=== PATIENT | male | born 1990 | race Caucasian/White ===

== ENCOUNTER 2020-12-26 13:25 | Emergency (ER) | payer OTHER, MEDICAID ==
[2020-12-26] MEDS ORDERED: MVI, Adult with Vitamin K 10 ML, Folic Acid 1 MG, Thiamine 100 MG in Lactated Ringers 1... IV ONE ×4 (13:26)
[2020-12-26] MEDS ORDERED: Lidocaine 1% 30 ML SDV ONE ×2 (13:26→14:29)
[2020-12-26] MEDS ORDERED: fentaNYL 100 MCG/2 ML SDV IV ONE ×3 (13:26)
[2020-12-26] MEDS ORDERED: HYDROmorphone 1 MG/ML Syringe IV ONE (13:26)
[2020-12-26] MEDS ORDERED: Iopamidol 612 MG/ML 100 ML Bottle IVPUSH ONE (13:38)
[2020-12-26] MEDS ORDERED: fentaNYL 100 MCG/2 ML SDV IVPUSH ONE ×3 (13:39→15:16)
[2020-12-26] MEDS ORDERED: MVI, Adult with Vitamin K 10 ML, Thiamine 100 MG, Folic Acid 1 MG in Lactated Ringers 1... IV ONE ×4 (13:40)
[2020-12-26] MEDS ORDERED: Lidocaine 1% 30 ML SDV INJECT ONE (14:00)
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
[2020-12-26 14:18] LABS: ANION GAP 11.2 mEq/L (7-13); CHLORIDE,CL 107 mmol/L (98-107); SODIUM,NA 145 mmol/L (136-145)
[2020-12-26 14:26] LABS: PTT,PARTIAL THROMBOPLSTIN TIME 23.5 SEC (22.0-34.0)
[2020-12-26] MEDS ORDERED: fentaNYL 100 MCG/2 ML SDV ONE ×2 (14:29→14:46)
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
[2020-12-26] MEDS ORDERED: HYDROmorphone 1 MG/ML Syringe ONE (14:46)
--- NOTE | 2020-12-26 15:12 | CR ---
PROCEDURE INFORMATION: Exam: XR Chest Exam date and time: 12/26/2020 2:43 PM Age: 30 years old Clinical indication: Other: Confirm tube placement TECHNIQUE: Imaging protocol: XR of the chest. Views: 1 view. COMPARISON: CT Chest Abdomen Pelvis w Cont 12/26/2020 1:46 PM FINDINGS: Tubes, catheters and devices: Chest tube appears to lie in the left pleural space. Lungs: Minimally visualized. No consolidation. Pleural spaces: Unremarkable. No pleural effusion. No pneumothorax. Heart/Mediastinum: Not well visualized.. Bones/joints: Acute left rib fractures. Prominent subcutaneous emphysema. IMPRESSION: Positioning of of left chest tube appears satisfactory.
[2020-12-26] MEDS ORDERED: ceFAZolin 2 GM in Sodium Chloride 0.9% 50 ML IV ONE (15:15)
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
[2020-12-31] MEDS ORDERED: fentaNYL 100 MCG/2 ML SDV IVPUSH ONE ×3 (08:53→08:55)
[2020-12-31] MEDS ORDERED: HYDROmorphone 0.5 MG/0.5 ML Syringe IVPUSH ONE (08:54)
[2020-12-31] MEDS ORDERED: Lidocaine 1% 30 ML SDV INJECT ONE (08:54)
== END 2020-12-26 15:37 ==
LOC: DL.ED 13:25
DX: S22.42XA Multiple fractures of ribs, left side, initial encounter for closed fracture (principal); S22.031A Stable burst fracture of third thoracic vertebra, initial encounter for closed fracture; S27.0XXA Traumatic pneumothorax, initial encounter; T79.7XXA Traumatic subcutaneous emphysema, initial encounter; E66.9 Obesity, unspecified; Z88.1 Allergy status to other antibiotic agents; Z68.30 Body mass index [BMI] 30.0-30.9, adult; V49.40XA Driver injured in collision with unspecified motor vehicles in traffic accident, initial encounter
CPT/HCPCS: 32551; 36415; 70450; 71045; 71260; 72125; 72128; 74177; 80053; 80307; 83605; 83735; 85025; 85610; 85730; 86140; 86850; 86900; 86901; 96365; 96368; 96375; 99285-25; J0690; J1170; J3010; J3411; J3490; J7120; Q9967

== ENCOUNTER 2023-10-07 13:13 | Emergency (ER) | payer BC ==
[2023-10-07 15:05] LABS: BASOPHILS PERCENT AUTO 0.4 % (0.0-1.0); HEMOGLOBIN 13.6 g/dL (14.0-18.0); MEAN CORPUSCULAR HGB CONC 33.2 g/dL (33.0-35.0); MEAN CORPUSCULAR VOLUME 90.5 fL (80-100); MONOCYTES PERCENT AUTO 8.6 % (2-8); PLATELET COUNT,PLT 294 10^3/uL (150-450); RED BLOOD CELL COUNT 4.53 10^6/uL (4.6-6.2)
[2023-10-07] MEDS: Iopamidol 612 MG/ML 100 ML Bottle IVPUSH ONE (15:06)
[2023-10-07] MEDS: Sodium Chloride 0.9% 1,000 ML IV ONE (15:13)
[2023-10-07] MEDS: Sodium Chloride 0.9% 10 ML Syringe FLUSH PRN (15:14)
[2023-10-07 15:34] LABS: A/G RATIO 0.9; ALBUMIN 3.8 g/dL (3.4-5.0); ANION GAP 11.6 mEq/L (7-13); BILIRUBIN TOTAL 0.2 mg/dL (0.2-1.0); BUN/CREATININE RATIO 15.2 (No establ ref range); C-REACTIVE PROTEIN 0.63 ng/dL (<=0.50); CALCIUM 8.9 mg/dL (8.5-10.1); CREATININE 1.05 mg/dL (0.70-1.30); EST CRCL DRUG DOSING (CG) 100.06 mL/min; POTASSIUM,K 3.6 mmol/L (3.5-5.1); PROTEIN TOTAL,TP 7.8 g/dL (6.4-8.2)
[2023-10-07 16:18] LABS: APPEARANCE,URINE CLEAR (CLEAR); BILIRUBIN,URINE NEGATIVE (NEGATIVE); COLOR,URINE YELLOW (YELLOW); GLUCOSE,URINE NEGATIVE (NEGATIVE); KETONES,URINE NEGATIVE (NEGATIVE); LEUKOCYTE ESTERASE,URINE NEGATIVE (NEGATIVE); NITRITE,URINE NEGATIVE (NEGATIVE); OCCULT BLOOD,URINE NEGATIVE (NEGATIVE); PROTEIN,URINE NEGATIVE (NEGATIVE); UROBILINOGEN,URINE 0.2 mg/dL (0.2-1.0)
== END 2023-10-07 16:45 | disposition home or self-care (01) ==
LOC: DL.ED 13:13
DX: R10.31 Right lower quadrant pain (principal); R14.1 Gas pain; R14.2 Eructation; R14.3 Flatulence; Z88.1 Allergy status to other antibiotic agents; Z88.8 Allergy status to other drugs, medicaments and biological substances
CPT/HCPCS: 36415; 74177; 80053; 81003; 83605; 85025; 86140; 96360; 99284; J7030; Q9967; J3490